=== PATIENT | male | born 1960 | race Asian ===

== ENCOUNTER 2019-03-05 23:02 | Emergency (ER) | payer OTHER ==
[~2019-03-05] VITALS: Ht 172.7 cm; Wt 83.9 kg
[2019-03-05 23:10] VITALS: BP_SYST 158
--- NOTE | 2019-03-05 23:20 | NUR ---
Patient to ER bed 6 to gown for evaluation. Side rails up. Report given to Jacqui MUKHERJEE.
[2019-03-05] MEDS ORDERED: KETOROLAC TROMETHAMINE 60 MG/2 ML VIAL IM ONE (23:45)
--- NOTE | 2019-03-06 00:01 | NUR ---
ER at bedside examining patient.
--- NOTE | 2019-03-06 00:01 | NUR ---
Tenisha ritter in [facility] - 03/06/19 at 0001 by [email or web address] TANISHA George at bedside examining patient.
--- NOTE | 2019-03-06 00:10 | NUR ---
Pt came to the ED for blood in urine and urinary retention. Reports pain is in lower abd and pain is 6/10. Reports he had lithrotripsy 3 weeks ago for multiple kidney stones. Reports stones are 9 mm. Denies n/v/d or fever. No other complaints/injuries noted. Will cont. to monitor.
[2019-03-06 00:12] LABS: BASOPHILS # (AUTO) 0.1 K/uL (0.0-0.2); BASOPHILS % (AUTO) 0.6 % (0.0-2.0); EOSINOPHILS # (AUTO) 0.2 K/uL (0.0-0.4); EOSINOPHILS % (AUTO) 2.8 % (0.0-4.0); HEMATOCRIT 37.7 % (36-54); HEMOGLOBIN 12.7 g/dL (14.0-18.0); LYMPHOCYTES # (AUTO) 1.1 K/uL (1.0-5.5); LYMPHOCYTES % (AUTO) 12.9 % (20.5-51.5); MEAN CORPUSCULAR HEMOGLOBIN 30 pg (27-31); MEAN CORPUSCULAR HGB CONC 34 % (32-36); MEAN CORPUSCULAR VOLUME 88 fL (79.0-98.0); MONOCYTES # (AUTO) 0.6 K/uL (0.0-1.0); NEUTROPHILS # (AUTO) 6.3 K/uL (1.8-7.7); NEUTROPHILS % (AUTO) 76.7 % (40.0-70.0); PLATELET COUNT (AUTO) 404 K/uL (130-430); RED CELL DISTRIBUTION WIDTH 14.1 % (9.0-15.0); WHITE BLOOD COUNT (AUTO) 8.2 K/uL (4.8-10.8)
--- NOTE | 2019-03-06 00:15 | NUR ---
No prescription medications per Pt.
[2019-03-06 00:27] LABS: CREATININE 0.91 mg/dL (0.55-1.30); POTASSIUM 3.4 mmol/L (3.5-5.1)
[2019-03-06 00:29] LABS: PROTHROMBIN TIME 10.6 SECS (9.5-12.5)
[2019-03-06 00:33] LABS: ALBUMIN 3.2 g/dL (3.4-4.8); TOTAL BILIRUBIN 0.5 mg/dL (0.0-1.0)
--- NOTE | 2019-03-06 01:00 | NUR ---
Placed 16 F scott for Continuous bladder irrigation.
--- NOTE | 2019-03-06 01:05 | NUR ---
Irrigation has stopped. Attemped to irrigate with 10 cc however, pt states that bladder is too full.
--- NOTE | 2019-03-06 01:10 | NUR ---
Bladder scanner shows >96mL volume in bladder.
[2019-03-06 01:19] LABS: HEMATOCRIT 38.8 % (36-54); HEMOGLOBIN 12.9 g/dL (14.0-18.0)
--- NOTE | 2019-03-06 01:20 | NUR ---
D/C 16 F Scott due to irrigation stoppping. Attempted to flush with irrigation 10cc of irrigation water. However, scott stopped. Placed 18 F scott, balloon placed. flash of bright red fluid in scott bag.
--- NOTE | 2019-03-06 01:25 | NUR ---
Irrigation stopped, attempted to flush with irrigation of 10cc of irrigation water. D/C scott placed. 20 F scott per MD order. tolerated well. Will cont. to monitor.
--- NOTE | 2019-03-06 01:30 | NUR ---
Irrigation has stopped. Attempted to flush with 10 cc of irrigation water. D/C scott. ER made aware. Placed 24 F scott, flash of bright red blood noted.
--- NOTE | 2019-03-06 01:40 | NUR ---
Continuous bladder irrigation stopped. Stopped CBI fluids. Huff still placed. TANISHA GOMEZ made aware.
[2019-03-06] MEDS ORDERED: LIDOCAINE VISCOUS 2%, 15 ML UDC ONE (01:41)
--- NOTE | 2019-03-06 02:20 | NUR ---
Note stone in ED - 03/06/19 at 0229 by [email or web address] D/C 16 F Scott due to irrigation stoppping. Attempted to flush with irrigation 10cc of irrigation water. However, scott stopped. Placed 18 F scott, balloon placed. flash of bright red fluid in scott bag.
[2019-03-06] MEDS ORDERED: MORPHINE 4 MG/ML INJ. SYRINGE IVP ONE ×2 (03:00→03:15)
--- NOTE | 2019-03-06 03:00 | NUR ---
Pt states pain is 10/10. ER made aware.
[2019-03-06] MEDS ORDERED: MORPHINE 4 MG/ML INJ. SYRINGE IM ONE (03:15)
--- NOTE | 2019-03-06 03:40 | NUR ---
Patient to be transferred to [facility]. Is being transferred due to higher level of care. Receiving facility has accepting physician and available space. ER physician has signed transfer form. Patient or responsible libertarian has agreed to transfer and signed form. Patient belongings inventoried and will be sent with patient. Copy of nursing notes, lab reports, EKG, Physicians Orders and X-rays to be sent with patient. Report called to Bony Abreu at receiving facility. Receiving physician is Dr. Lazo. [facility] has been called for transfer. ETA is now.
--- NOTE | 2019-03-06 03:45 | NUR ---
As pt was about to leave, pt states, "I want the scott out." TANISHA GOMEZ made aware. Removed scott.
[2019-03-06 03:50] VITALS: BP_SYST 168
--- NOTE | 2019-03-06 03:50 | NUR ---
Pt transferred to [facility] via [facility]. IV site patent. No signs of infiltration. No signs of acute distress.
== END 2019-03-06 03:50 | disposition short-term general hospital (02) ==
LOC: SED 23:02
DX: R33.9 Retention of urine, unspecified (principal); R31.9 Hematuria, unspecified
CPT/HCPCS: 36415; 51702; 80053; 83051; 85014; 85025; 85610; 96372; 96374; 99285; J1885; J2001; J2270